=== PATIENT | male | born 1950 | race Caucasian/White ===

== ENCOUNTER 2017-02-17 10:43 | Emergency (ER) | payer OTHER ==
[~2017-02-17] VITALS: Ht 185.4 cm; Wt 104.3 kg
[2017-02-17] MEDS ORDERED: NEURONTIN300 MG PO (11:11)
[2017-02-17] MEDS ORDERED: TRAZODONE HCL150 MG PO (11:12)
[2017-02-17] MEDS ORDERED: VENLAFAXINE HCL25 MG PO (11:56)
--- NOTE | 2017-02-18 07:23 | EKG ---
[facility] [address] [facility] [place] [address] Signed Sinus tachycardia Left anterior fascicular block Septal infarct (cited on or before 17-FEB-2017) Abnormal ECG When compared with ECG of 17-FEB-2017 10:59, (Unconfirmed) premature ventricular complexes are no longer present Non-specific change in ST segment in Lateral leads Confirmed by GUILLERMINA LESLIE MD ([id number]) on 02/18/2017 7:23:44 AM Electronically Signed By: GUILLERMINA LESLIE MD 02/18/17 0723 PATIENT NAME: RUTHIE PEREZ Electrocardiogram DATE OF : 54 PHYSICIAN: GUILLERMINA LESLIE MD REPORT #: [id number] REPORT IS CONFIDENTIAL AND NOT TO BE RELEASED WITHOUT AUTHORIZATION
== END 2017-02-17 16:15 | disposition home or self-care (01) ==
LOC: ED 10:43
DX: J44.9 Chronic obstructive pulmonary disease, unspecified (principal); R07.89 Other chest pain; G62.9 Polyneuropathy, unspecified; Z87.891 Personal history of nicotine dependence; Z98.890 Other specified postprocedural states; Z79.899 Other long term (current) drug therapy
CPT/HCPCS: 71020; 80053; 82803; 83880; 84484; 85025; 93005; 93010; 94640; 94761; 96374; 99284; J2930

== ENCOUNTER 2017-08-19 13:19 | Emergency (ER) | payer OTHER ==
[~2017-08-19] VITALS: Ht 185.4 cm; Wt 95.2 kg
[~2017-08-19 13:19] MED LIST: NEURONTIN300 MG PO; TRAZODONE HCL150 MG PO; VENLAFAXINE HCL25 MG PO
[2017-08-19] MEDS ORDERED: BUSPIRONE HCL5 MG PO (13:42)
[2017-08-19] MEDS ORDERED: KRISTALOSE20 GM PO (15:32)
[2017-08-19] MEDS ORDERED: ATIVAN1 MG PO (15:32)
== END 2017-08-19 15:52 | disposition home or self-care (01) ==
LOC: ED 13:19
DX: F10.229 Alcohol dependence with intoxication, unspecified (principal); K72.90 Hepatic failure, unspecified without coma; J44.9 Chronic obstructive pulmonary disease, unspecified; F17.200 Nicotine dependence, unspecified, uncomplicated; Z79.899 Other long term (current) drug therapy; Y90.8 Blood alcohol level of 240 mg/100 ml or more
CPT/HCPCS: 80053; 82140; 83880; 85025; 96374; 96375; 99283; G0480; J2060; J2405; J7120

== ENCOUNTER 2017-09-18 04:23 | Emergency (ER) | payer OTHER ==
[~2017-09-18] VITALS: Ht 185.4 cm; Wt 95.2 kg
[~2017-09-18 04:23] MED LIST changes: +ATIVAN1 MG PO; +BUSPIRONE HCL5 MG PO; +KRISTALOSE20 GM PO
--- NOTE | 2017-09-18 13:44 | EKG ---
[facility] [address] [place] [address] Signed Atrial flutter with variable AV block with premature ventricular or aberrantly conducted complexes Left axis deviation Low voltage QRS Incomplete right bundle branch block Cannot rule out Anterior infarct (cited on or before 17-FEB-2017) ST \T\ T wave abnormality, consider inferior ischemia Abnormal ECG When compared with ECG of 18-SEP-2017 04:29, (Unconfirmed) Previous ECG has undetermined rhythm, needs review Confirmed by GUILLERMINA LESLIE MD ([id number]) on 09/18/2017 1:44:35 PM Electronically Signed By: GUILLERMINA LESLIE MD 09/18/17 1344 PATIENT NAME: RUTHIE PEREZ Electrocardiogram DATE OF : 54 PHYSICIAN: GUILLERMINA LESLIE MD REPORT #: [id number] REPORT IS CONFIDENTIAL AND NOT TO BE RELEASED WITHOUT AUTHORIZATION
--- NOTE | 2017-09-18 13:44 | EKG ---
[facility] [address] [facility] [place] [address] Signed Undetermined rhythm Incomplete right bundle branch block Possible Anterior infarct (cited on or before 17-FEB-2017) ST \T\ T wave abnormality, consider inferolateral ischemia Abnormal ECG When compared with ECG of 17-FEB-2017 11:29, Current undetermined rhythm precludes rhythm comparison, needs review Left anterior fascicular block is no longer present Incomplete right bundle branch block is now present Questionable change in initial forces of Anteroseptal leads Confirmed by GUILLERMINA LESLIE MD ([id number]) on 09/18/2017 1:44:24 PM Electronically Signed By: GUILLERMINA LESLIE MD 09/18/17 1344 PATIENT NAME: RUTHIE PEREZ Electrocardiogram DATE OF : 54 PHYSICIAN: GUILLERMINA LESLIE MD REPORT #: [id number] REPORT IS CONFIDENTIAL AND NOT TO BE RELEASED WITHOUT AUTHORIZATION
== END 2017-09-18 10:50 | disposition short-term general hospital (02) ==
LOC: ED 04:23
PROC: BT40ZZZ Ultrasonography of Bladder (ICD-10-PCS; principal; 2017-09-18)
DX: F10.239 Alcohol dependence with withdrawal, unspecified (principal); R79.89 Other specified abnormal findings of blood chemistry; E87.6 Hypokalemia; J81.1 Chronic pulmonary edema; R94.31 Abnormal electrocardiogram [ECG] [EKG]; J44.9 Chronic obstructive pulmonary disease, unspecified; Z87.891 Personal history of nicotine dependence; Z79.899 Other long term (current) drug therapy; Y90.0 Blood alcohol level of less than 20 mg/100 ml
CPT/HCPCS: 36600; 51798; 70450; 71045; 80053; 82140; 82803; 83880; 84484; 85025; 85610; 93005; 93010; 94640; 96374; 96375; 96376; 99285; C1894; G0480; J1160; J2060; J3411; J3480; J7030; P9047